=== PATIENT | male | born 1985 | race Two or more races ===

== ENCOUNTER 2021-06-15 19:49 | Emergency (ER) | payer SELFPAY ==
[~2021-06-15] VITALS: Ht 167.6 cm; Wt 61.2 kg
[2021-06-15 20:06] VITALS: BP 143/96
== END 2021-06-15 20:17 | disposition left against medical advice (07) ==
LOC: ER 19:49
DX: M25.512 Pain in left shoulder (principal); M79.672 Pain in left foot; Z53.21 Procedure and treatment not carried out due to patient leaving prior to being seen by health care provider; V43.52XA Car driver injured in collision with other type car in traffic accident, initial encounter; Y93.89 Activity, other specified; Y92.410 Unspecified street and highway as the place of occurrence of the external cause; Y99.8 Other external cause status